=== PATIENT | female | born 1995 | race Asian ===

== ENCOUNTER → 2017-12-06 | Outpatient (CLI) | payer OTHER ==
[~2017-12-06] MED LIST: BCPILLS PO; IBUP-1459 PO
--- NOTE | 2017-12-07 08:45 | DIAGNOSTIC IMAGING REPORT ---
LUMBAR SPINE 5 VIEWS HISTORY: LUMBAR SPINE AND RIGHT SI JOINT PAIN COMPARISON: Lumbar spine 09/04/2015. FINDINGS: There is no fracture. No subluxation. Disc spaces are preserved. 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 Small osteophytes at the inferior aspect of the right sacroiliac joint suggestive of mild degenerative change. This remains unchanged. IMPRESSION: 1. No fracture or subluxation within the lumbar spine. 2. 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 3. 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 Electronically signed by: Cuate Anna M.D. 12/07/2017 8:44 AM Dictated Date/Time: 12/07/2017 8:36 AM
--- NOTE | 2017-12-07 08:55 | DIAGNOSTIC IMAGING REPORT ---
PELVIS 1 OR 2 VIEWS CLINICAL HISTORY: LUMBAR SPINE AND RIGHT SI JOINT PAIN COMPARISON: None. DISCUSSION: The bones and joint spaces appear intact. There is no evidence of fracture, dislocation or bony disease. There is suggestion of a slight flattening of the superior acetabular margins as well as mid aspects of the femoral articular surface components. There is no evidence for acetabular protrusion. There are no abnormal soft tissue calcifications. Sacroiliac joints are unremarkable. There is no evidence for bony ankylosis. IMPRESSION: A potential early dysplastic change of the hips bilaterally. No acute process. The above report was generated using voice recognition software. It may contain grammatical, syntax or spelling errors. Electronically signed by: Marco Antonio Wade M.D. 12/07/2017 8:54 AM Dictated Date/Time: 12/07/2017 8:49 AM
== END | disposition home or self-care (01) ==
LOC: C.RDSM 08:29
PROVIDERS: ATTEND Family Medicine
DX: M54.5 Low back pain (principal)

== ENCOUNTER → 2017-12-10 | Outpatient (CLI) | payer OTHER ==
--- NOTE | 2017-12-10 16:20 | DIAGNOSTIC IMAGING REPORT ---
BONE SCAN LIMITED (NM) HISTORY: LOWER BACK PAIN TECHNIQUE: 3 hours following the intravenous administration of 27 mCi of technetium 99 M MDP, anterior, oblique, posterior views of the lumbar spine were performed. SPECT imaging of the lumbar spine was also obtained. COMPARISON STUDY: Lumbar spine 12/07/2017. FINDINGS: No abnormal radiotracer uptake seen within the lumbar spine, visualized pelvis, or sacroiliac joints. Specifically, no abnormality to suggest spondylolysis. IMPRESSION: Normal lumbar spine bone scan. Electronically signed by: Cuate Anna M.D. 12/10/2017 4:19 PM Dictated Date/Time: 12/10/2017 4:14 PM
== END | disposition home or self-care (01) ==
LOC: C.NUCL 11:42
PROVIDERS: ATTEND Family Medicine
DX: M54.5 Low back pain (principal)

== ENCOUNTER → 2017-12-16 | Day surgery (SDC) | payer OTHER ==
[2017-12-14 08:06] VITALS: Ht 154.9 cm; Wt 56.8 kg
[~2017-12-16] VITALS: Ht 154.9 cm; Wt 56.8 kg
== END | disposition home or self-care (01) ==
LOC: EDSTATUS 14:30 → C.PAT 15:57
PROVIDERS: ATTEND Physical Medicine & Rehabilitation
DX: M46.1 Sacroiliitis, not elsewhere classified (principal); Z53.09 Procedure and treatment not carried out because of other contraindication